=== PATIENT | female | born 1960 | race African-American/Black ===

== ENCOUNTER 2017-11-29 18:10 | Emergency (ER) | payer SELFPAY ==
[2017-11-29 18:11] VITALS: BP 189/103; PULSE 104; RESP 16; TEMP 36.6; O2SAT 98; BMI 29.3
[2017-11-29 18:18] VITALS: BP 180/97; PULSE 97; RESP 22; O2SAT 98
--- NOTE | 2017-11-29 18:40 | EKG12_ITS ---
Test Reason : HYPERTENSION Blood Pressure : / mmHG Vent. Rate : 086 BPM Atrial Rate : 086 BPM P-R Int : 154 ms QRS Dur : 084 ms QT Int : 372 ms P-R-T Axes : 067 -19 065 degrees QTc Int : 445 ms Normal sinus rhythm Voltage criteria for left ventricular hypertrophy Nonspecific T wave abnormality Abnormal ECG Confirmed by KEY BROWN ([id number]), editor managing director JEFF GOLDBERG ([id number] on 12/09/2017 6:12:29 PM Referred By: SHALONDA Confirmed By:KEY BROWN
--- NOTE | 2017-11-29 18:47 | ED.RN ---
NO OLD EKG'S IN MUSE
[2017-11-29] MEDS: Metoprolol Tartrate 25 MG Tablet PO (18:59)
[2017-11-29 19:17] LABS: Absolute Lymphocyte Count 2.36 X10^3/ul (0.83-4.51); Basophil# 0.03 X10^3/uL; Basophil% 0.4 % (0-1); Eosinophil# 0.35 X10^3/uL; Eosinophils% 4.2 % (0-5); Hematocrit 42.6 % (37-47); Lymphocyte # 2.36 X10^3/ul (4.0); Lymphocyte % 28.6 % (19-41); Mean Corp Hgb Conc 32.9 g/gl (32-36); Mean Corpuscular Volume 79.2 fL (81-99); Mean Platelet Vol. 9.4 fl (6.2-12.0); Monocyte# 0.49 X10^3/uL; Monocyte% 5.9 % (0-10); Neutrophil # 4.99 X10^3/uL (2.7-7.7); Neutrophil % 60.5 % (47-70); Platelet Count 211 K/mm3 (150-450); RBC Distribution Width SD 36.7 fl (35.1-43.9); Red Blood Count 5.38 M/mm3 (4.2-5.4); White Blood Count 8.3 K/mm3 (4.4-11.0)
[2017-11-29 19:21] LABS: POSITIVE COUNT NO; POSITIVE DIFFERENTIAL NO; POSITIVE MORPHOLOGY NO
[2017-11-29 19:27] VITALS: BP 175/97; PULSE 88; RESP 16
[2017-11-29 19:37] LABS: Anion Gap 8 (5-15); BUN 16 mg/dL (7-18); BUN/Creat Ratio 15.8 RATIO (10-20); Calcium,Total 9.4 mg/dL (8.5-10.1); Chloride 103 mmol/L (98-107); Creatinine, Serum 1.01 mg/dL (0.55-1.02); EST Glomerular Filtration Rate 60 mL/min (>60); Est Glom Filt Rate - Afr Amer 73 mL/min (>60); Estimated Creatinine Clearance 54.35 ml/min; Glucose 136 mg/dL (74-106); Potassium 4.7 mmol/L (3.5-5.1); Sodium Level 137 mmol/L (136-145)
--- NOTE | 2017-11-29 20:26 | ED.VISSUMM ---
- ER Visit Summary Date of Service: 11/29/17 Chief Complaint: Hypertension History of Present Illness: The patient is a 57 F with a history of hypertension. Patient states she used to be on lisinopril but that caused a cough. She was switched to hydrochlorothiazide. Patient has not been on this medication for quite some time and states she is not sure that it was effective when she was taking it. She went for a physical today for a new job and blood pressure was noted to be 160/110. She has been checking it all evening and has not been able to get it to come down. She has not taken her blood pressure medications in the last 4 months. Patient states earlier today she had a headache but that is now resolved. She has no physical complaints at this time. Physical Examination: Vital signs include a blood pressure of 180/97, temperature 97.8, heart rate 97, respiratory rate 22, pulse ox 98% on room air. The time of my examination her blood pressure is 190/93 with a heart rate of 92. Patient sitting upright in bed in no acute distress. She is alert and talkative. Head and neck examination is normal. Heart is regular rate and rhythm. Lung sounds are clear. Abdomen is soft nontender. Neuro exam is unremarkable. Test Results: EKG is sinus 86. CBC and chemistry studies unremarkable. Emergency Department Course and Treatment: Patient was given 25 mg of p.o. Lopressor. Repeat blood pressures on the monitor include systolic blood pressures ranging from 157-179. At this time she will be discharged with a prescription for Lopressor. She had previously seen Dr. Doan for her hypertension and she was referred back to him. Treatment Plan: [] Disposition: Discharge Impression: Hypertension This note was generated with Next 1 Interactive dictation software. It may contain incorrect words, spelling, and punctuation that were not noted in review of the chart prior to signing ED Disposition - Plan for ED Patient: Disposition: Home or Assisted Living Chief Complaint: Hypertension Instructions: ED Hypertension New Begin Tx Prescriptions: Metoprolol Tartrate [Lopressor (Beta Jagjit)] 25 mg PO DAILY #30 tablet Referrals: Roberto Doan MD [STAFF PHYSICIAN] - 1-2 Weeks
[2017-11-29 20:38] VITALS: BP 179/95; PULSE 82; RESP 18; O2SAT 98
--- NOTE | 2017-11-29 20:38 | ED.RN ---
md aware of sbp 170's,okay with discharge.
== END 2017-11-29 20:39 | disposition home or self-care (01) ==
PROVIDERS: Emergency Provider Emergency Medicine
DX: I10 Essential (primary) hypertension (principal)
CPT/HCPCS: 80048; 85025; 93005; 99285; A4216

== ENCOUNTER 2020-11-22 07:21 | Day surgery (SDC) | payer MEDICAID, SELFPAY ==
[2020-11-22] VITALS (7 sets, daily range): BP systolic 103–124; BP diastolic 67–80; PULSE 64–80; RESP 18; TEMP 36.1–36.9; O2SAT 97–100; BMI 30.7
[2020-11-22] MEDS: Lactated Ringers 1,000 ML 100 ML IV (08:03)
--- NOTE | 2020-11-22 08:21 | H&P.OPEN ---
HPI - General HPI Narrative JULIANO SLADE, is a 60 F who presents for screening colonoscopy. The patient has never had a colonoscopy in the past. She has no abdominal pain or blood in her stool. She denies any family history of colon cancer. [facility] Medical History (Updated 11/22/20 @ 08:[address] Ravi Soni MD) Depression Diabetes Hx of echocardiogram Hypertension Leg cramps Non-smoker Wears glasses Home Medications flaxseed oil-omega 3,6,9 1 ea PO DAILY 10/04/15 [History Last Taken Unknown] amlodipine 10 mg PO DAILY 11/15/20 [History Last Taken 11/22/20 06:30] aspirin [Aspir-81] 81 mg PO DAILY 11/15/20 [History Last Taken Unknown] losartan 100 mg PO DAILY 11/15/20 [History Last Taken 11/22/20 06:30] multivitamin 1 cap PO DAILY 11/15/20 [History Last Taken Unknown] spironolactone 50 mg PO DAILY 11/15/20 [History Last Taken Unknown] Allergy/AdvReac Type Severity Reaction Status Date / Time codeine AdvReac Nausea Verified 11/22/20 07:49 Surgical History (Updated 11/15/20 @ 08:29 by Ladonna Benítez) Hx of tubal ligation Hx of vaginal hysterectomy Social History Smoking Status: Never smoker Past Medical/Surgical History Planned Operation Planned Operative Procedure/s: cscope open access S.O.S: No Previous Hospitalizations/Surgeries HX Hospitalizations: No HX of Surgeries: CHILDBIRTH X4 TUBAL LIGATION Any Problems With Anesthesia: No You/Your Family Experience Fever (Hyperthermia) With Anes: No Cholinesterase deficiency: No Cardiovascular Hx Chest Pain within Last 2 months: No Hx of Irregular Heartbeat and/or Afib: No Hx Heart Attack: No Hx Congestive Heart Failure: No Hx Rheumatic Fever: No Hx Hypertension: Yes (controlled with meds) Hx Internal Defibrillator: No Hx Pacemaker: No Hx Cardiac Catheterization: No Hx Cardiac Surgery/Stents/Etc.: No Hx Stress Test: No (ECHO 2016) Hx Pain in Legs when Walking/Leg Cramps: Yes (LEG CRAMPS NIGHTLY) Respiratory Chronic Cough: Yes HX of Shortness of Breath: No Hoarseness: No Hx Chronic Obstructive Pulmonary Disease (COPD): No Hx Asthma: No Hx Emphysema: No Hx Sleep Apnea: No Hx Respiratory Tract Infection/Cold (presently): No Do You Snore Loudly (louder than talking or can be heard): Yes Do You Often Feel Tired/ Fatigued/ Sleepy Dring Daytime?: Yes Has Anyone Observed You Stop Breathing During Sleep?: No Result (for STOP score): Positive Hx Smoking: No Smoking Status: Never smoker Gastrointestinal Hx Gastroesophageal Reflux: No Hx Gastrointestinal Disorders: No Hx Gastrointestinal Bleed: No Hx Ulcer: No Hx Hiatal Hernia: No Difficulty Chewing/Swallowing: No Special diet followed at home: Yes (LACTOSE INTOLERANT) Hx Unplanned Weight Loss of 20#: No HX Unplanned Weight Gain of 20#: No Neurological Hx Seizures: No HX Syncope/Blackout Spells/Unconsciousness: No Hx Transient Ischemic Attacks (TIA): No Hx Multiple Sclerosis: No Hx Parkinson's Disease: No Hx Head/Neck Injury: No Hx Headaches: No Hx Back Injury/Pain: No Recent Onset of Speech Difficulty: No Restless Legs: No Does patient have nerve stimulator: No Blood Disorder Hx Leukemia: No Bleeding Tendencies: No Hx Deep Vein Thrombosis: No Hx High Cholesterol: No Blood Transmitted Disease: No Hx Hepatitis: No Hx Cirrhosis: No Hx Anemia: Yes (ON IRON SUPPLEMENT) Hx Blood Disorders: No Reproduction : No Is Patient Lactating: No Hx Hysterectomy: No Hx Tubal Ligation: Yes Are You Post Menopause: No Genitourinary Hx Renal Disease: Yes (FREQUENCY WITH URINATION) Hx Dialysis: No Musculoskeletal Hx Arthritis: No Hx Rheumatoid Arthritis: No Hx Gout: No Recent Onset of an Orthopedic Problem: No Endocrine Hx Diabetes: No Thyroid Disease: No Hx Steroid Therapy: No Psycho/Social Hx Substance Use: No Hx Alcohol Use: No Hx Anxiety: No Hx Depression: Yes Mental Illness: No Hx Dementia: No Miscellaneous Hx Cancer: No Recent Exposure to Contagious Disease: No Hx of C-Diff: No Any Loose Teeth: No Allergies codeine Adverse Reaction (Verified 11/22/20 07:49) Nausea Discharge Is Pt Admitted From a Detention, or a Custodial: No After D/C, Where Do you Plan to Go: Return Home Vital Signs Vital Signs Vital Signs: 11/22/20 07:50 11/22/20 07:51 Temperature 98.4 F Temperature Source Temporal Pulse Rate 80 Respiratory Rate 18 Respiratory Pattern Normal Blood Pressure 118/80 Blood Pressure Mean 92 Blood Pressure Source Monitor Blood Pressure Position Semi-Fowlers Blood Pressure Location Right Arm Pulse Ox 100 Oxygen Delivery Method Room Air Weight Weight: 178 lb 12.718 oz Body Mass Index (BMI) 30.7 Physical Exam Const alert and oriented x3 Resp normal respiratory effort and normal air movement Cardio regular rate and regular rhythm GI soft to palpation, non-tender and non-distended Assessment & Plan Assessment/Plan (1) Screen for colon cancer: PLAN: Patient is here for screening colonoscopy. I explained endoscopy in detail to the patient. I explained the risks including but not limited to stroke or heart attack with anesthesia, perforation of the GI tract, bleeding, infection. I explained that any of these could necessitate further emergency surgery. The patient understands and all questions were answered sufficiently. The patient wishes to proceed with procedure. Ravi Soni MD Pager: [facility] [address] [place] [address], [address] [place] [address] Office: Surgery Risks - Colonoscopy Risks Include but are not Limited To: Risks include but are not limited to: Bleeding, perforation requiring further surgery, inability to complete colonoscopy requiring barium enema.
--- NOTE | 2020-11-22 09:00 | OP.CCLET_ITS ---
11/22/2020 No Primary Care Physician Re : Colonoscopy procedure for Ciara Yee [facility] Physician This procedure was performed on Sunday, November 22, 2020. My impressions and recommendations are as follows: Impressions : - The entire examined colon is normal on direct and retroflexion views. - No specimens collected. Recommendations : - Discharge patient to home. - Resume previous diet. - Continue present medications. - Repeat colonoscopy in 10 years for screening purposes. My findings are described in the full procedure note, which is enclosed. If I can be of further assistance, please feel free to contact me at Doctor phone number(s): , Work: . Sincerely, Ravi Soni MD 11/22/2020 8:59:49 AM This report has been signed electronically.
--- NOTE | 2020-11-22 09:00 | OP.COLON_ITS ---
Patient Name: Ciara Yee Procedure Date: 11/22/2020 8:29 AM Date of : 1960 Age: 60 Procedure: Colonoscopy Indications: Screening for colorectal malignant neoplasm Providers: Ravi Soni MD Referring MD: No Primary Care Physician Medicines: Monitored Anesthesia Care Patient Profile: This is a 60 year old female. Refer to note in patient chart for documentation of history and physical. Last Colonoscopy: none. The patient's first colonoscopy is today. Complications: No immediate complications. Procedure: Pre-Anesthesia Assessment: - Prior to the procedure, a History and Physical was performed, and patient medications and allergies were reviewed. The patient's tolerance of previous anesthesia was also reviewed. The risks and benefits of the procedure and the sedation options and risks were discussed with the patient. All questions were answered, and informed consent was obtained. Prior Anticoagulants: The patient has taken no previous anticoagulant or antiplatelet agents. After reviewing the risks and benefits, the patient was deemed in satisfactory condition to undergo the procedure. After I obtained informed consent, the scope was passed under direct vision. Throughout the procedure, the patient's blood pressure, pulse, and oxygen saturations were monitored continuously. The Colonoscope was introduced through the anus and advanced to the cecum, identified by appendiceal orifice and ileocecal valve. The colonoscopy was performed without difficulty. The patient tolerated the procedure well. The quality of the bowel preparation was good. Scope In: 8:46:28 AM Scope Withdrawal Time 0 hours 6 minutes 13 seconds Scope Out: 8:56:59 AM Total Procedure Duration Time 0 hours 10 minutes 31 seconds Findings: The entire examined colon appeared normal on direct and retroflexion views. Impression: - The entire examined colon is normal on direct and retroflexion views. - No specimens collected. Recommendation: - Discharge patient to home. - Resume previous diet. - Continue present medications. - Repeat colonoscopy in 10 years for screening purposes. Procedure Code(s): --- Professional --- 98746, Colonoscopy, flexible; diagnostic, including collection of specimen(s) by brushing or washing, when performed (separate procedure) Diagnosis Code(s): --- Professional --- Z12.11, Encounter for screening for malignant neoplasm of colon CPT copyright 2017 [employer]. All rights reserved. The codes documented in this report are preliminary and upon regulatory affairs strategy specialist review may be revised to meet current compliance requirements. Ravi Soni MD 11/22/2020 8:59:49 AM This report has been signed electronically. Number of Addenda: 0 Note Initiated On: 11/22/2020 8:29 AM
== END 2020-11-22 10:17 ==
LOC: EN 07:24 → AC 07:26
PROVIDERS: Visit Provider Surgery
PROC: 0DJD8ZZ Inspection of Lower Intestinal Tract, Via Natural or Artificial Opening Endoscopic (ICD-10-PCS; CPT 45378; principal; 2020-11-22 08:25)
DX: Z12.11 Encounter for screening for malignant neoplasm of colon (principal); I10 Essential (primary) hypertension; E66.9 Obesity, unspecified; Z79.82 Long term (current) use of aspirin; Z68.30 Body mass index [BMI] 30.0-30.9, adult; Z79.899 Other long term (current) drug therapy
CPT/HCPCS: 45378; J7120; J2405